=== PATIENT | male | born 1965 | race American Indian/Alaskan Native ===

== ENCOUNTER 2018-01-04 13:57 | Emergency (ER) | payer SELFPAY ==
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
[2018-01-04 17:16] LABS: Basophils % (Auto) 0.4 % (0.0-1.8); Eosinophils % (Auto) 0.1 % (0.0-4.3); Hematocrit 42.7 % (35.5-45.6); Hemoglobin 14.1 gm/dl (11.8-15.2); Lymphocytes # (Auto) 2.1 K/mm3 (1.2-5.4); Mean Corpuscular HGB Conc 33 % (32-34); Mean Corpuscular Hemoglobin 27 pg (28-32); Mean Corpuscular Volume 80 fl (84-94); Monocytes # (Auto) 0.6 K/mm3 (0.0-0.8); Monocytes % (Auto) 8.4 % (0.0-7.3); Platelet Count 268 K/mm3 (140-440); Red Blood Count 5.32 M/mm3 (3.65-5.03); Red Cell Distribution Width 14.2 % (13.2-15.2)
[2018-01-04 17:20] LABS: BUN/Creatinine Ratio 13; Blood Urea Nitrogen 9 mg/dL (9-20); Calcium 9.5 mg/dL (8.4-10.2); Hemolysis Index 9
[2018-01-05 06:55] LABS: Bacteria,Urine 1+ /HPF (Negative); Bilirubin,Urine NEG (Negative); Blood,Urine NEG (Negative); Color,Urine Yellow (Yellow); Mucus,Urine FEW /HPF; Protein,Urine <15 mg/dL mg/dL (Negative)
[2018-01-05 07:01] LABS: Amphetamine Screen,Urine PRESUMPTIVE NEGATIVE; Benzodiazepines Screen,Urine PRESUMPTIVE NEGATIVE; Cannabinoid Screen,Urine PRESUMPTIVE NEGATIVE; Methadone Screen,Urine PRESUMPTIVE NEGATIVE; Opiate Screen,Urine PRESUMPTIVE NEGATIVE
[2018-01-05 07:13] LABS: Cocaine Screen,Urine PRESUMPTIVE POSITIVE
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
[2018-01-05] MEDS ORDERED: MOTRIN PO ONE (13:57)
[2018-01-05] MEDS ORDERED: COGENTIN PO SCH (22:00)
[2018-01-05] MEDS: HALDOL PO SCH (22:05)
[2018-01-06] MEDS ORDERED: MOTRIN PO ONE (09:23)
[2018-01-06] MEDS: HALDOL PO SCH ×2 (09:37→22:07)
[2018-01-06] MEDS: COGENTIN PO SCH ×2 (09:37→22:05)
--- NOTE | 2018-01-06 10:13 | Progress Note ---
Subjective - Reason for Consult Consult date: 01/06/18 Reason for consult: Psychiatry Follow-up - Chief Complaint Chief complaint: "I need a break from the drugs" 52-year-old -[place] male who has a past medical history of cocaine and heroin abuse. He presents to the ER with AH's and SI's. Today the patient is calm and cooperative during the assessment. He stated that he feel better and would like to be discharged soon. His thought process was circumstantial throughout the interview. He stated that uses [facility] resources for outpatient psy services. He denies SI/HI's and AVH's. He denies any side effects of his medications. Mental Status Exam - Vital signs Last Vital Signs Temp 98.2 F 01/06/18 08:55 Pulse 81 01/06/18 08:55 Resp 16 01/06/18 10:10 BP 115/79 01/06/18 08:55 Pulse Ox 97 01/06/18 10:10 - Exam Narrative exam: MSE: Appearance: calm, cooperative Behavior: regular eye contact Speech: regular rate and tone Mood: "okay" Affect: congruent to mood Thought Process: circumstantial Thought Content: denies SI/HI's and AVH's Motor Activity: sitting up in the bed Cognition: A/O x3 Insight: variable Judgment: variable Assessment and Plan Impression: Hx of Schizoaffective DO. Substance Use DO (cocaine). Opioid Use DO per the patient. Today the patient is calm and cooperative during the assessment. The patient denies having any withdrawals (opioid). DDx: R/O Substance Induced Psychosis Recommendation/Plan: Reevaluate 1013 24 hours. Continue Haldol 5 mg PO BID for psychosis and Cogentin 0.5 mg PO BID for EPS prevention. Monitor for opioid withdrawals. Discussed the importance to abstain from recreational drug use. Disposition: If the patient's 1013 in rescinded in 24 hours, he can follow up [facility] for outpatient/rehabs services. Will staff with Dr. Abernathy.
[2018-01-07] MEDS ORDERED: MOTRIN PO ONE (04:29)
[2018-01-07] MEDS ORDERED: MOTRIN PO PRN (04:32)
[2018-01-07] MEDS: HALDOL PO SCH (10:28)
[2018-01-07] MEDS: COGENTIN PO SCH (10:28)
--- NOTE | 2018-01-07 13:28 | Progress Note ---
Subjective - Reason for Consult Consult date: 01/07/18 Reason for consult: Psychiatry Follow-up - Chief Complaint Chief complaint: "I will do better" 52-year-old -[place] African male who has a past medical history of cocaine and heroin abuse. He presents to the ER with AH's and SI's. Today the patient is calm and cooperative during the assessment. He stated that his main priority is staying off the "street drugs." He stated that he will follow up with [facility] for outpatient/rehab services. He denies SI/HI's and AVH's. He denies any side effects of his medications. Mental Status Exam - Vital signs Last Vital Signs Temp 98.4 F 01/07/18 06:00 Pulse 93 H 01/07/18 06:00 Resp 18 01/07/18 06:00 BP 132/75 01/07/18 06:00 Pulse Ox 98 01/07/18 06:00 - Exam Narrative exam: MSE: Appearance: calm, cooperative Behavior: regular eye contact Speech: regular rate and tone Mood: "better" Affect: congruent to mood Thought Process: more organized Thought Content: denies SI/HI's and AVH's Motor Activity: sitting up in the bed Cognition: A/O x3 Insight: appropriate Judgment: appropriate Assessment and Plan Impression: Hx of Schizoaffective DO. Substance Use DO (cocaine). Opioid Use DO per the patient. Today the patient is calm and cooperative during the assessment. The patient's psychosis has resolved. DDx: R/O Substance Induced Psychosis Recommendation/Plan: Rescind 1013. Continue Haldol 5 mg PO BID for psychosis and Cogentin 0.5 mg PO BID for EPS prevention. Dispo: The patient can follow up with [facility] for outpatient/rehab services. Will staff with Dr. Abernathy.
[2018-01-07 14:12] VITALS: BP 118/84
--- NOTE | 2018-01-07 15:08 | Emergency Department Report ---
Blank Doc - Documentation Documentation: 60-year-old male schizoaffective disorder here in ED for several days for evaluation of suicidal ideations and auditory hallucinations. Pt has history of polysubstance abuse as well. Pt has seen and evaluated by psych. 1013 has been rescinded. I spoke with the patient and he currently denies SI, HI or auditory hallucinations. Patient is calm and cooperative. Discharged with recommended Haldol and Cogentin prescriptions.
== END 2018-01-07 16:00 ==
LOC: EEVIPCON 13:57 → ED 13:57
DX: F20.9 Schizophrenia, unspecified (principal); F31.9 Bipolar disorder, unspecified; F11.10 Opioid abuse, uncomplicated; F14.10 Cocaine abuse, uncomplicated
CPT/HCPCS: 36415; 80048; 80307; 81001; 85025; 99285; G0480; 80320